=== PATIENT | male | born 1960 | race Two or more races ===

== ENCOUNTER 2019-03-11 04:49 | Inpatient (IN) | payer OTHER ==
[~2019-03-11] VITALS: Ht 172.7 cm; Wt 117.0 kg
[2019-03-11 07:47] LABS: Basophils # (auto) 0.1 uL; Basophils % (auto) 0.4 % (0.0-2.0); Eosinophils # (auto) 0 uL; Hematocrit 32.9 % (41.0-53.0); Hemoglobin 10.9 g/dL (13.5-17.5); Lymphocytes # (auto) 0.8 uL; Lymphocytes % (auto) 6.6 % (10.0-50.0); Mean Corpuscular Hemoglobin 30.4 pg (28.0-32.0); Mean Corpuscular Hgb Conc. 33.2 g/dL (32.0-36.0); Mean Corpuscular Volume 91.5 fL (80.0-100.0); Monocytes # (auto) 1.4 uL; Monocytes % (auto) 11.3 % (0.0-12.0); Neutrophils # (auto) 9.8 uL; Neutrophils % (auto) 81.7 % (37.0-80.0); Platelet Count (auto) 117 10^3/uL (140-450); Red Blood Cells 3.59 10^6/uL (4.5-5.90); Red Cell Distribution Width 14.5 % (11.8-14.3)
[2019-03-11 07:54] LABS: Albumin 3.1 g/dL (3.4-5.0); Calcium 8.8 mg/dL (8.5-10.1); Potassium 5.1 mmol/L (3.5-5.1)
[2019-03-11 07:57] LABS: Bilirubin, Total 1.3 mg/dL (0.2-1.0); Total Protein 7.7 g/dL (6.4-8.2)
[2019-03-11 08:00] LABS: BUN/Creatinine Ratio 6.8
[2019-03-11] MEDS ORDERED: DEXTROSE (50%) 50ML SYRG IV PRN ×2 (08:15→11:00)
[2019-03-11] MEDS ORDERED: InsuLIN R (HUMAN) 100 UNITS in SODIUM CHL 0.9% 99 ML IV SCH (08:15)
[2019-03-11] MEDS: ACCU-CHEK COMFORT CURVE STRIP VI SCH ×9 (09:00→22:49)
[2019-03-11 09:07] LABS: Magnesium 2.3 mg/dL (1.6-2.6); Phosphorus 4.8 mg/dL (2.5-4.90)
[2019-03-11] MEDS ORDERED: ENOXAPARIN SOD 120 MG/0.8 ML SYRINGE SC ONE (09:30)
[2019-03-11] MEDS: SODIUM CHLORIDE 0.9% 1,000 ML IV SCH ×5 (09:33→14:39)
[2019-03-11] MEDS ORDERED: AZITHROMYCIN 500MG/ 250ML 250 ML IV ONE (10:45)
[2019-03-11] MEDS ORDERED: cefTRIAXone 1GM/50ML D5W 50 ML IV ONE (10:45)
[2019-03-11] MEDS: InsuLIN R (HUMAN) 100 UNITS in SODIUM CHL 0.9% 99 ML IV SCH (11:48)
[2019-03-11] MEDS ORDERED: SODIUM CHLORIDE 0.9% 1,000 ML IV SCH ×4 (12:15→16:51)
[2019-03-11] MEDS ORDERED: ACETAMINOPHEN 500 MG TAB PO PRN (12:30)
[2019-03-11] MEDS ORDERED: MORPHINE SULF INJ 2 MG/ML SYRINGE 1ML IV PRN ×2 (12:30)
[2019-03-11] MEDS ORDERED: ONDANSETRON HCL 4 MG/2 ML VIAL IV PRN (12:30)
[2019-03-11] MEDS ORDERED: HYDROcodone-ACET 5/325MG TAB PO PRN (12:30)
[2019-03-11] MEDS ORDERED: BUMETANIDE 2.5mg/10ml (0.25 mg/ml) INJ IV ONE (12:30)
[2019-03-11] MEDS ORDERED: hydrALAZINE HCL 20 MG/ML VL IV PRN (12:30)
[2019-03-11] MEDS ORDERED: NITROGLYCERIN 0.4 MG SL TAB SL PRN (12:30)
[2019-03-11 17:58] LABS: Basophils # (auto) 0.1 uL; Basophils % (auto) 0.6 % (0.0-2.0); Eosinophils # (auto) 0 uL; Eosinophils % (auto) 0.2 % (0.0-7.0); Hemoglobin 10.6 g/dL (13.5-17.5); Lymphocytes # (auto) 1.5 uL; Mean Corpuscular Hemoglobin 30.5 pg (28.0-32.0); Mean Corpuscular Hgb Conc. 34.3 g/dL (32.0-36.0); Monocytes # (auto) 1.3 uL; Monocytes % (auto) 12.1 % (0.0-12.0); Neutrophils # (auto) 7.9 uL; Neutrophils % (auto) 73.1 % (37.0-80.0); Platelet Count (auto) 109 10^3/uL (140-450); Red Blood Cells 3.48 10^6/uL (4.5-5.90); Red Cell Distribution Width 14.8 % (11.8-14.3); White Blood Cell 10.8 10^3/uL (4.4-10.8)
[2019-03-11 18:12] LABS: Cholesterol 130 mg/dL (< 200)
[2019-03-11 18:15] LABS: HDL Cholesterol 60 mg/dL (40-59); LDL Cholesterol 47 mg/dL (< 100); Triglycerides 128 mg/dL (< 150)
[2019-03-11] MEDS ORDERED: SODIUM CHL 0.9% 1000 ML BAG XX ONE (19:00)
[2019-03-11 21:05] LABS: Phosphorus 4.2 mg/dL (2.5-4.90)
[2019-03-11 21:27] LABS: BUN/Creatinine Ratio 7.5; Calcium 8.7 mg/dL (8.5-10.1); Potassium 3.8 mmol/L (3.5-5.1)
[2019-03-11] MEDS ORDERED: METOPROLOL TARTRATE 25 MG TAB PO SCH (22:00)
[2019-03-11] MEDS ORDERED: ATORVASTATIN 20 MG TAB PO SCH (22:00)
--- NOTE | 2019-03-11 22:50 | NUR ---
Respiratory note: SPOKE TO PT REGARDING CPAP ORDERS. PT STATED HE WANTED TO HOLD OFF 0N BEING PLACED ON CPAP UNTIL SOMEONE FROM HIS HOME WAS ABLE TO BRING HIS MASK IN THE MORNING. HR 100, RR 20, SPO2 96% ON 4L NC. NO SIGNS OF ANY RESPIRATORY DISTRESS NOTED. WILL CONTINUE TO MONITOR PT.
[2019-03-12] MEDS: ACCU-CHEK COMFORT CURVE STRIP VI SCH ×9 (00:39→12:45)
[2019-03-12 03:23] VITALS: BP 172/73
[2019-03-12] MEDS: InsuLIN R (HUMAN) 100 UNITS in SODIUM CHL 0.9% 99 ML IV SCH (03:42)
[2019-03-12] MEDS ORDERED: DEXTROSE (50%) 50ML SYRG IV PRN ×2 (04:30→06:30)
[2019-03-12] MEDS: SODIUM CHLORIDE 0.9% 1,000 ML IV SCH (05:36)
[2019-03-12] MEDS ORDERED: InsuLIN REG 1unit/0.01ml Soln (100units/ml) ONE (06:45)
[2019-03-12 06:53] LABS: BUN/Creatinine Ratio 6.4; Calcium 8.7 mg/dL (8.5-10.1); Potassium 3.4 mmol/L (3.5-5.1)
[2019-03-12 07:02] LABS: Basophils # (auto) 0 uL; Basophils % (auto) 0.5 % (0.0-2.0); Eosinophils # (auto) 0.1 uL; Eosinophils % (auto) 0.6 % (0.0-7.0); Hematocrit 29.3 % (41.0-53.0); Hemoglobin 10.2 g/dL (13.5-17.5); Lymphocytes # (auto) 0.9 uL; Lymphocytes % (auto) 8.8 % (10.0-50.0); Mean Corpuscular Hgb Conc. 34.9 g/dL (32.0-36.0); Mean Corpuscular Volume 88.7 fL (80.0-100.0); Monocytes # (auto) 1.2 uL; Monocytes % (auto) 11.9 % (0.0-12.0); Neutrophils # (auto) 7.9 uL; Neutrophils % (auto) 78.2 % (37.0-80.0); Platelet Count (auto) 119 10^3/uL (140-450); Red Blood Cells 3.31 10^6/uL (4.5-5.90); Red Cell Distribution Width 14.4 % (11.8-14.3); White Blood Cell 10.2 10^3/uL (4.4-10.8)
--- NOTE | 2019-03-12 07:20 | NUR ---
Respiratory note: PT SLEEPING COMFORTABLY. NO DISTRESS NOTED. CPAP NOT AT BEDSIDE. SPO2 95% HR 98 RR 16.
[2019-03-12] MEDS ORDERED: InsuLIN REG 1unit/0.01ml Soln (100units/ml) SC SCH ×2 (08:00)
[2019-03-12] MEDS ORDERED: ACCU-CHEK COMFORT CURVE STRIP VI SCH (08:00)
[2019-03-12] MEDS ORDERED: ADENOSINE 103 MG in GIVE UN-DILUTED 0 ML IV STA (08:14)
--- NOTE | 2019-03-12 08:20 | NUR ---
RECEIVED REPORT FROM SIMA VEGA.
--- NOTE | 2019-03-12 08:35 | NUR ---
Telemetry admit from ANIY[facility] PINEDA admitted to Telemetry unit after SBAR received. Patient oriented to ILYA RIZZO, primary RN, unit, room, bed, and unit policies regarding patient care and visiting hours. Patient now on continuous telemetry monitoring, tele box # [id number] and telemetry reading on arrival to unit is SINUS RHYTHM. Patient placed on bedside oxygen, weighed by bedscale and encouraged to call if they need something. All questions and concerns addressed, patient verbalized understanding.
[2019-03-12 09:00] VITALS: BP 149/57
--- NOTE | 2019-03-12 09:08 | NUR ---
REQUESTED FAMILY TO BRING COPY OF HOME MEDICATIONS
[2019-03-12] MEDS ORDERED: ASPirin-EC 81 mg tab PO SCH (10:00)
[2019-03-12] MEDS ORDERED: LISINOPRIL 10 MG TAB PO SCH (10:00)
[2019-03-12 13:00] VITALS: BP 165/71
--- NOTE | 2019-03-12 14:03 | NUR ---
1400 03/12/19 Contacted Provider Relations Rep Amy at [facility] to request authorization for continued stay. Per Amy she is still reviewing clinical information from today, she said they are offering to transfer patient to [facility] if stable. I called Dr. Wall regarding patient's stability to transfer-he will assess once he has seen the patient.
[2019-03-12] MEDS ORDERED: POTASSIUM CHL 10 Meq TABLET PO ONE (14:15)
[2019-03-12 15:06] VITALS: BP 165/71
[2019-03-12 17:00] VITALS: BP 164/81
== END 2019-03-12 18:20 | disposition home or self-care (01) | DRG 280 ==
LOC: ER 04:49 → EDBD 04:49 → TELE 04:50 → TELE-CENTR 03-12 08:30
PROVIDERS: ADMIT Nurse Practitioner Acute Care; ATTEND Internal Medicine
PROC: 5A1D70Z Performance of Urinary Filtration, Intermittent, Less than 6 Hours Per Day (ICD-10-PCS; principal; 2019-03-11)
DX: I21.4 Non-ST elevation (NSTEMI) myocardial infarction (principal); E10.10 Type 1 diabetes mellitus with ketoacidosis without coma; I50.23 Acute on chronic systolic (congestive) heart failure; N18.6 End stage renal disease; I13.2 Hypertensive heart and chronic kidney disease with heart failure and with stage 5 chronic kidney disease, or end stage renal disease; D63.8 Anemia in other chronic diseases classified elsewhere; M94.0 Chondrocostal junction syndrome [Tietze]; E10.22 Type 1 diabetes mellitus with diabetic chronic kidney disease; E66.9 Obesity, unspecified; E78.5 Hyperlipidemia, unspecified; E86.0 Dehydration; E87.5 Hyperkalemia; S20.219A Contusion of unspecified front wall of thorax, initial encounter; V89.2XXA Person injured in unspecified motor-vehicle accident, traffic, initial encounter; W22.10XA Striking against or struck by unspecified automobile airbag, initial encounter; Y92.410 Unspecified street and highway as the place of occurrence of the external cause; Z79.4 Long term (current) use of insulin; Z79.82 Long term (current) use of aspirin; Z79.899 Other long term (current) drug therapy; Z82.49 Family history of ischemic heart disease and other diseases of the circulatory system; Z83.3 Family history of diabetes mellitus; Z90.5 Acquired absence of kidney; Z99.2 Dependence on renal dialysis; Z68.39 Body mass index [BMI] 39.0-39.9, adult
CPT/HCPCS: 36415; 36600; 71045; 71250; 73130; 73562; 80048; 80053; 80061; 82010; 82805; 82962; 83605; 83735; 83880; 83930; 84100; 84484; 85025; 86141; 87040; 87081; 90935; 93005; 93306; 96365; 96372; G0378; J0153; J0696; J1642; J1815